=== PATIENT | female | born 1955 | race Caucasian/White ===

== ENCOUNTER 2017-01-16 06:11 | Day surgery (SDC) | payer MEDICARE, OTHER ==
[~2017-01-16] VITALS: Ht 149.9 cm; Wt 95.4 kg
[~2017-01-16 06:11] MED LIST: AMLO-147 PO; ASPI-481 PO; ATOR10TA65 PO; FENO200 PO; IBUPROFEN PO; INSU100C5 SQ; METF500T4 PO; NOVO3I SQ; RANI150C11 PO
[2017-01-16] MEDS ORDERED: PROPOFOL 40 ML ONE (07:19)
[2017-01-16] MEDS ORDERED: LIDOCAINE 2% (SDV) 5 ML INJ ONE (07:19)
[2017-01-16 07:20] VITALS: Ht 149.9 cm; Wt 95.4 kg
[2017-01-16 07:56] VITALS: BP 175/74; PULSE 59; RESP 20
--- NOTE | 2017-01-16 08:21 | OPPN ---
Date/Time of Note Date/Time of Note DATE: 01/16/17 TIME: 08:20 Operative Report Preoperative Diagnosis Change in bowel habit History of colon polyps Postoperative Diagnosis Diverticulosis of the colon Internal hemorrhoids No colon neoplasm was identified Operation/Procedure Performed Colonoscopy Surgeon see signature line behavioral health assistant None Anesthesia: MAC Estimated blood loss: none Transfusion Required none Specimen None Grafts/Implants none Complications none CARMELLA SCHMIDT MD Jan 16, 2017 08:21
[2017-01-16 08:52] VITALS: BP 155/67; PULSE 62; RESP 19
--- NOTE | 2017-01-16 12:57 | GILP ---
DATE OF PROCEDURE: 01/16/2017 NAME OF PROCEDURE: Colonoscopy. SURGEON: Carmella Veliz MD PREOPERATIVE DIAGNOSES: 1. Change in bowel habit. 2. History of colon polyps. POSTOPERATIVE DIAGNOSES 1. Colonoscopy all the way to the cecum. 2. Diverticulosis of the colon. 3. Internal hemorrhoids. 4. No colon neoplasm was identified. INDICATION FOR THE PROCEDURE: Ms. Suzanna Murillo is a 61-year-old female patient who noticed a change in the bowel habit. She had history of multiple colon polyps. Patient was scheduled for followup colonoscopy. The procedure and possible complications are well explained to the patient. She understood and cons ented to the procedure. DESCRIPTION OF PROCEDURE: Under the influence of anesthesia, the colonoscope was carefully introduc ed in the rectum and under direct vision, it was advanced all the way to the cecum. FINDINGS: The patient had diverticulosis of the colon. She also had internal hemorrhoids. No colo n neoplasm was identified. She tolerated the procedure very well and there was no complication from the procedure. At the end of the procedure, she was awake with stable vital signs and she was discharged home to the care of h er family. IMPRESSION: Please see postoperative diagnoses. PLAN: 1. High fiber diet. 2. Next screening colonoscopy in 10 years. Dictated By: CARMELLA DISLA/CHANTELL Conf#: [id number] DID#: [id number]
== END 2017-01-16 10:24 | disposition home or self-care (01) ==
LOC: GIL 06:11
PROVIDERS: ATTEND Internal Medicine Gastroenterology
DX: R19.4 Change in bowel habit (principal); K57.90 Diverticulosis of intestine, part unspecified, without perforation or abscess without bleeding; K64.8 Other hemorrhoids; E11.9 Type 2 diabetes mellitus without complications; I10 Essential (primary) hypertension; E78.5 Hyperlipidemia, unspecified; E66.01 Morbid (severe) obesity due to excess calories; Z68.41 Body mass index [BMI] 40.0-44.9, adult
CPT/HCPCS: 82962